=== PATIENT | female | born 1960 | race African-American/Black ===

== ENCOUNTER 2017-07-31 19:40 | Inpatient (IN) | payer OTHER ==
[~2017-07-31] VITALS: Ht 157.5 cm; Wt 68.0 kg
[2017-07-31] MEDS ORDERED: ASPIRIN 325 MG TABLET PO ONE (19:45)
[2017-07-31] MEDS ORDERED: NITROGLYCERIN OINT 1 GM PACKET TP ONE ×2 (19:45→20:17)
[2017-07-31] MEDS ORDERED: FUROSEMIDE 20 MG/2 ML VIAL IVP ONE (19:45)
[2017-07-31 20:09] LABS: BASOPHILS # (AUTO) 0.1 K/uL (0.0-8.0); BASOPHILS % (AUTO) 0.9 % (0.0-2.0); EOSINOPHILS % (AUTO) 0.5 % (0.0-7.0); HEMATOCRIT 39.4 % (31.2-41.9); LYMPHOCYTES # (AUTO) 2.5 K/uL (20.0-40.0); LYMPHOCYTES % (AUTO) 43.2 % (20.5-51.5); MEAN CORPUSCULAR HEMOGLOBIN 26.8 uug (24.7-32.8); MEAN CORPUSCULAR HGB CONC 33 g/dL (32.3-35.6); MEAN CORPUSCULAR VOLUME 81.3 fL (75.5-95.3); MONOCYTES # (AUTO) 0.5 K/uL (2.0-10.0); MONOCYTES % (AUTO) 8.2 % (0.0-11.0); NEUTROPHILS # (AUTO) 2.7 K/uL (1.8-8.9); NEUTROPHILS % (AUTO) 47.2 % (38.5-71.5); PLATELET COUNT (AUTO) 242 K/uL (179-408); RED BLOOD CELL COUNT(AUTO) 4.85 MIL/uL (3.63-4.92); WHITE BLOOD COUNT (AUTO) 5.7 K/uL (3.8-11.8)
[2017-07-31] MEDS ORDERED: ASPIRIN 325 MG TABLET ONE (20:17)
[2017-07-31] MEDS ORDERED: ATORVASTATIN 40 MG TABLET (20:22)
[2017-07-31] MEDS ORDERED: CARVEDILOL 6.25 MG TABLET (20:22)
[2017-07-31] MEDS ORDERED: [UNRECOGNIZED DRUG - OTHER] (20:22)
[2017-07-31] MEDS ORDERED: AMLODIPINE BESYLATE 5 MG TAB (20:22)
[2017-07-31] MEDS ORDERED: ENTRESTO 24 MG-26 MG TABLET (20:22)
[2017-07-31] MEDS ORDERED: FUROSEMIDE 20 MG TABLET (20:22)
[2017-07-31 20:23] LABS: CREATININE 0.9 mg/dL (0.6-1.3); POTASSIUM 4.1 mmol/L (3.5-5.1)
[2017-07-31] MEDS ORDERED: FUROSEMIDE 40 MG/4 ML VIAL ONE (20:23)
[2017-07-31 20:36] LABS: BILIRUBIN,DIRECT 0.4 mg/dL (0.0-0.2); BILIRUBIN,TOTAL 1.2 mg/dL (0.2-1.0); TOTAL PROTEIN, SERUM 7.4 g/dL (6.4-8.2)
[2017-08-01] MEDS ORDERED: ENOXAPARIN SODIUM 40 MG/0.4 ML DISP.SYRIN SQ SCH (03:45)
[2017-08-01] MEDS ORDERED: Z GUARD REMEDY PASTE 57 GM TUBE TOP PRN (04:00)
[2017-08-01] MEDS ORDERED: ACETAMINOPHEN 325 MG TABLET PO PRN (04:00)
[2017-08-01] MEDS ORDERED: ONDANSETRON 4 MG/2 ML VIAL IV PRN (04:00)
[2017-08-01] MEDS ORDERED: HYDROCODONE/APAP 5-325MG TABLET PO PRN (04:00)
[2017-08-01] MEDS ORDERED: MAGNESIUM HYDROXIDE 30 ML LIQUID UDC PO PRN (04:00)
[2017-08-01 06:42] LABS: BASOPHILS # (AUTO) 0.1 K/uL (0.0-8.0); BASOPHILS % (AUTO) 0.9 % (0.0-2.0); EOSINOPHILS # (AUTO) 0.1 K/uL (0.0-0.7); EOSINOPHILS % (AUTO) 1.8 % (0.0-7.0); HEMATOCRIT 36.8 % (31.2-41.9); HEMOGLOBIN 11.9 g/dL (10.9-14.3); LYMPHOCYTES # (AUTO) 2.6 K/uL (20.0-40.0); LYMPHOCYTES % (AUTO) 43.1 % (20.5-51.5); MEAN CORPUSCULAR HEMOGLOBIN 26.2 uug (24.7-32.8); MEAN CORPUSCULAR HGB CONC 32 g/dL (32.3-35.6); MEAN CORPUSCULAR VOLUME 80.9 fL (75.5-95.3); MONOCYTES # (AUTO) 0.6 K/uL (2.0-10.0); MONOCYTES % (AUTO) 10.2 % (0.0-11.0); NEUTROPHILS # (AUTO) 2.6 K/uL (1.8-8.9); PLATELET COUNT (AUTO) 227 K/uL (179-408); RED BLOOD CELL COUNT(AUTO) 4.55 MIL/uL (3.63-4.92)
[2017-08-01 06:55] LABS: MAGNESIUM 1.7 mg/dL (1.8-2.4); POTASSIUM 3.3 mmol/L (3.5-5.1)
[2017-08-01] MEDS ORDERED: CARVEDILOL 6.25 MG TABLET PO SCH (09:00)
[2017-08-01] MEDS: ASPIRIN 81 MG TAB.CHEW PO SCH (09:10)
[2017-08-01] MEDS: FUROSEMIDE 20 MG/2 ML VIAL IV SCH (09:10)
[2017-08-01] MEDS ORDERED: AMLODIPINE 5 MG TABLET ONE (09:26)
[2017-08-01] MEDS ORDERED: FUROSEMIDE 20 MG/2 ML VIAL ONE (09:26)
[2017-08-01] MEDS ORDERED: CARVEDILOL 6.25 MG TABLET ONE (09:26)
[2017-08-01] MEDS ORDERED: ASPIRIN 81 MG TAB.CHEW ONE (09:26)
[2017-08-01] MEDS: AMLODIPINE 5 MG TABLET PO SCH (11:10)
[2017-08-01] MEDS ORDERED: MAGNESIUM OXIDE 400 MG TABLET PO ONE (13:30)
[2017-08-01] MEDS ORDERED: POTASSIUM CHLORIDE 20 MEQ TAB.PRT.SR ONE (13:50)
[2017-08-01] MEDS ORDERED: POTASSIUM CHLORIDE 20 MEQ TAB.PRT.SR PO ONE (14:00)
[2017-08-01] MEDS: CARVEDILOL 3.125 MG TABLET PO SCH (18:05)
[2017-08-01 18:45] VITALS: BP 120/86
[2017-08-01 19:00] VITALS: BP 119/84
[2017-08-01] MEDS: ENOXAPARIN SODIUM 80 MG/0.8 ML DISP.SYRIN SQ SCH (21:00)
[2017-08-01] MEDS: ZOLPIDEM 5 MG TABLET PO PRN (22:11)
[2017-08-02] VITALS: BP 103/69
[2017-08-02 04:00] VITALS: BP 134/95
[2017-08-02 05:40] LABS: BASOPHILS % (AUTO) 0.7 % (0.0-2.0); EOSINOPHILS # (AUTO) 0.1 K/uL (0.0-0.7); EOSINOPHILS % (AUTO) 1.7 % (0.0-7.0); HEMOGLOBIN 11.9 g/dL (10.9-14.3); LYMPHOCYTES # (AUTO) 2.2 K/uL (20.0-40.0); LYMPHOCYTES % (AUTO) 36.2 % (20.5-51.5); MEAN CORPUSCULAR HEMOGLOBIN 26.3 uug (24.7-32.8); MEAN CORPUSCULAR HGB CONC 32 g/dL (32.3-35.6); MEAN CORPUSCULAR VOLUME 81.8 fL (75.5-95.3); MONOCYTES # (AUTO) 0.5 K/uL (2.0-10.0); MONOCYTES % (AUTO) 7.5 % (0.0-11.0); NEUTROPHILS # (AUTO) 3.2 K/uL (1.8-8.9); NEUTROPHILS % (AUTO) 53.9 % (38.5-71.5); PLATELET COUNT (AUTO) 225 K/uL (179-408); RED BLOOD CELL COUNT(AUTO) 4.53 MIL/uL (3.63-4.92)
[2017-08-02 05:54] LABS: CREATININE 0.9 mg/dL (0.6-1.3); MAGNESIUM 1.9 mg/dL (1.8-2.4); PHOSPHOROUS 3.7 mg/dL (2.5-4.9); POTASSIUM 3.8 mmol/L (3.5-5.1)
[2017-08-02 06:04] LABS: THYROID STIMULATING HORMONE 1.479 mIU/mL (0.358-3.740)
[2017-08-02] MEDS: ENOXAPARIN SODIUM 80 MG/0.8 ML DISP.SYRIN SQ SCH ×2 (09:00→20:41)
[2017-08-02] MEDS: ASPIRIN 81 MG TAB.CHEW PO SCH (09:06)
[2017-08-02] MEDS: CARVEDILOL 3.125 MG TABLET PO SCH ×2 (09:06→17:57)
[2017-08-02] MEDS: AMLODIPINE 5 MG TABLET PO SCH (09:07)
[2017-08-02] MEDS: FUROSEMIDE 20 MG/2 ML VIAL IV SCH (09:07)
[2017-08-02 12:16] VITALS: BP 113/82
[2017-08-02 16:00] VITALS: BP 118/90
[2017-08-02 20:00] VITALS: BP 107/78
[2017-08-02 22:00] VITALS: BP 107/78
[2017-08-02] MEDS: ZOLPIDEM 5 MG TABLET PO PRN (22:51)
[2017-08-03] VITALS (7 sets, daily range): BP systolic 118–138; BP diastolic 54–96
[2017-08-03] MEDS: AMLODIPINE 5 MG TABLET PO SCH (08:42)
[2017-08-03] MEDS: ASPIRIN 81 MG TAB.CHEW PO SCH (08:42)
[2017-08-03] MEDS: FUROSEMIDE 20 MG/2 ML VIAL IV SCH (08:42)
[2017-08-03] MEDS: CARVEDILOL 3.125 MG TABLET PO SCH (08:45)
[2017-08-03] MEDS: ENOXAPARIN SODIUM 80 MG/0.8 ML DISP.SYRIN SQ SCH (08:49)
[2017-08-03] MEDS ORDERED: CARVEDILOL 6.25 MG TABLET PO SCH (18:00)
[2017-08-03] MEDS ORDERED: CARVEDILOL 3.125 MG TABLET PO SCH (18:00)
[2017-08-03] MEDS ORDERED: ATORVASTATIN 40 MG TABLET PO SCH (21:00)
[2017-08-04] MEDS ORDERED: FUROSEMIDE 20 MG TABLET PO SCH (09:00)
== END 2017-08-03 18:40 | disposition home or self-care (01) | DRG 280 ==
LOC: ER 19:43 → OBSER 08-01 03:42 → TELE 08-01 18:32 → MED 08-03 11:08
PROVIDERS: ADMIT Nurse Practitioner Acute Care; ATTEND Nurse Practitioner Acute Care
DX: I11.0 Hypertensive heart disease with heart failure (principal); I21.A1 Myocardial infarction type 2; J96.02 Acute respiratory failure with hypercapnia; I50.23 Acute on chronic systolic (congestive) heart failure; I42.8 Other cardiomyopathies; B94.8 Sequelae of other specified infectious and parasitic diseases; Z79.82 Long term (current) use of aspirin; Z79.899 Other long term (current) drug therapy; Z91.11 Patient's noncompliance with dietary regimen
CPT/HCPCS: 36415; 70030-TC; 83735; 84100; 84443; 85025; 85730; 93005; 93307; A4663; J1650; J1940

== ENCOUNTER 2018-02-24 18:14 | Inpatient (IN) | payer OTHER ==
[~2018-02-24] VITALS: Ht 162.6 cm; Wt 69.4 kg
[~2018-02-24 18:14] MED LIST: AMLODIPINE BESYLATE 5 MG TAB; ATORVASTATIN 40 MG TABLET; CARVEDILOL 6.25 MG TABLET; ENTRESTO 24 MG-26 MG TABLET; FUROSEMIDE 20 MG TABLET; [UNRECOGNIZED DRUG - OTHER]
[2018-02-24] MEDS ORDERED: ATOR40TA PO (18:33)
[2018-02-24] MEDS ORDERED: FURO-152 PO (18:33)
[2018-02-24] MEDS ORDERED: CARV3.12 PO (18:33)
[2018-02-24] MEDS ORDERED: ASPI81TA31 PO (18:33)
--- NOTE | 2018-02-24 18:40 | NUR ---
RECEIVED PT C/O ABDOMINAL PAIN AND SOB , PT CONNECTED TO MONIOTOR AND 12 LEAD EKG DONE. AWAITING TO BE SEEN BY .
[2018-02-24] MEDS ORDERED: ONDANSETRON 4 MG/2 ML VIAL IV ONE (19:15)
--- NOTE | 2018-02-24 19:18 | NUR ---
REPORT GIVEN TO YOSEF FERNANDES
[2018-02-24] MEDS ORDERED: ONDANSETRON 4 MG/2 ML VIAL ONE (19:22)
[2018-02-24 19:32] LABS: HEMATOCRIT 40.2 % (31.2-41.9); HEMOGLOBIN 12.9 g/dL (10.9-14.3); LYMPHOCYTES % (AUTO) 28.7 % (20.5-51.5); MEAN CORPUSCULAR HEMOGLOBIN 25.3 uug (24.7-32.8); MEAN CORPUSCULAR HGB CONC 32 g/dL (32.3-35.6); MEAN CORPUSCULAR VOLUME 78.8 fL (75.5-95.3); MONOCYTES % (AUTO) 11.2 % (0.0-11.0); NEUTROPHILS % (AUTO) 58.3 % (38.5-71.5); PLATELET COUNT (AUTO) 276 K/uL (179-408); RED BLOOD CELL COUNT(AUTO) 5.11 MIL/uL (3.63-4.92); WHITE BLOOD COUNT (AUTO) 5.6 K/uL (3.8-11.8)
[2018-02-24 19:33] LABS: BASOPHILS % (AUTO) 0.8 % (0.0-2.0); EOSINOPHILS # (AUTO) 0.1 K/uL (0.0-0.7); LYMPHOCYTES # (AUTO) 1.6 K/uL (20.0-40.0); MONOCYTES # (AUTO) 0.6 K/uL (2.0-10.0); NEUTROPHILS # (AUTO) 3.3 K/uL (1.8-8.9)
[2018-02-24 19:40] LABS: CREATININE 1.1 mg/dL (0.6-1.3); POTASSIUM 3.5 mmol/L (3.5-5.1)
[2018-02-24 19:46] LABS: BILIRUBIN,DIRECT 0.6 mg/dL (0.0-0.2); BILIRUBIN,TOTAL 1.2 mg/dL (0.2-1.0); TOTAL PROTEIN, SERUM 7.3 g/dL (6.4-8.2)
[2018-02-24] MEDS ORDERED: ASPIRIN 81 MG TAB.CHEW PO ONE (21:45)
[2018-02-24] MEDS ORDERED: ASPIRIN 81 MG TAB.CHEW ONE (21:45)
[2018-02-24] MEDS ORDERED: ONDANSETRON 4 MG/2 ML VIAL IV PRN (22:15)
[2018-02-24] MEDS ORDERED: HYDROCODONE/APAP 5-325MG TABLET PO PRN (22:15)
[2018-02-24] MEDS ORDERED: Z GUARD REMEDY PASTE 57 GM TUBE TOP PRN (22:15)
[2018-02-24] MEDS ORDERED: ACETAMINOPHEN 325 MG TABLET PO PRN (22:15)
--- NOTE | 2018-02-24 22:19 | NUR ---
Pt resting comfortably in bed. Pt has adolescent granddaughter at bedside with her and is waiting for pt's son to fern picker the granddaughter before pt transfers to floor.
[2018-02-24] MEDS ORDERED: FLEET ENEMA 133 ML BOTTLE RC PRN (22:30)
[2018-02-24] MEDS ORDERED: MAGNESIUM CITRATE 296 ML BOTTLE PO ONE (22:30)
--- NOTE | 2018-02-24 22:54 | NUR ---
Pt. admitted to Telemetry , under care of Andre Chen COLOR STRAINING BAG WASHER. Diagnosis: Ascites + Heart Failure Report given to Serjio NAVAS. Belongs List completed VSS. No acute distress noted.
[2018-02-24] MEDS ORDERED: FUROSEMIDE 20 MG/2 ML VIAL IV ONE (23:00)
[2018-02-24 23:19] VITALS: BP 118/76
[2018-02-24] MEDS: MAGNESIUM HYDROXIDE 30 ML LIQUID UDC PO PRN (23:24)
--- NOTE | 2018-02-24 23:34 | NUR ---
Admitted from ER via [facility] D[facility]. CHF, 57 y/o female patient, awake alert & oriented, abdomen distended, unable to lay down in flat position with exertional SOB noted. Patient denies chest pain. Placed on Telemetry- Sinus rhythm on the monitor. O2 2 L nasally applied, kept on High mendoza's position, patient tolerated. Still c/o constipation x 5 days, Magnesium citrate 1 bottle given, Lasix 40 mg IVP adm. as ordered.
[2018-02-24] MEDS ORDERED: MAGNESIUM CITRATE 296 ML BOTTLE ONE (23:40)
[2018-02-25 04:00] VITALS: BP 113/84
--- NOTE | 2018-02-25 05:35 | NUR ---
Patient nauseated, Ice chips provided, Zofran 4mg IVP adm.
[2018-02-25 06:33] LABS: BASOPHILS % (AUTO) 0.7 % (0.0-2.0); EOSINOPHILS # (AUTO) 0.1 K/uL (0.0-0.7); EOSINOPHILS % (AUTO) 1.5 % (0.0-7.0); HEMATOCRIT 39.3 % (31.2-41.9); HEMOGLOBIN 12.6 g/dL (10.9-14.3); LYMPHOCYTES # (AUTO) 2.2 K/uL (20.0-40.0); LYMPHOCYTES % (AUTO) 43.1 % (20.5-51.5); MEAN CORPUSCULAR HEMOGLOBIN 25.6 uug (24.7-32.8); MEAN CORPUSCULAR HGB CONC 32 g/dL (32.3-35.6); MONOCYTES # (AUTO) 0.6 K/uL (2.0-10.0); MONOCYTES % (AUTO) 11.2 % (0.0-11.0); NEUTROPHILS # (AUTO) 2.2 K/uL (1.8-8.9); NEUTROPHILS % (AUTO) 43.5 % (38.5-71.5); PLATELET COUNT (AUTO) 257 K/uL (179-408); RED BLOOD CELL COUNT(AUTO) 4.91 MIL/uL (3.63-4.92); WHITE BLOOD COUNT (AUTO) 5.1 K/uL (3.8-11.8)
[2018-02-25 06:52] LABS: CREATININE 1.3 mg/dL (0.6-1.3); MAGNESIUM 2.2 mg/dL (1.8-2.4); PHOSPHOROUS 4.3 mg/dL (2.5-4.9); POTASSIUM 3.4 mmol/L (3.5-5.1)
[2018-02-25 07:33] LABS: *BILIRUBIN,URIN 1+ (NEGATIVE); *BLOOD, URINE NEGATIVE (NEGATIVE); *CLARITY,URINE CLEAR (CLEAR); *COLOR,URINE DARK YELLOW (YELLOW); *KETONES,URINE TRACE (NEGATIVE); *PROTEIN,URINE 2+ (NEGATIVE); LEUKOCYTE ESTERASE ,URINE NEGATIVE (NEGATIVE); NITRITE, URINE NEGATIVE (NEGATIVE); PH,URINE 5.5 (5.0-8.0); UGLUCOSE NEGATIVE (NEGATIVE)
[2018-02-25 07:43] LABS: RBC,URINE 0-3 /HPF (0-3); WBC,URINE 0-3 /HPF (0-3)
[2018-02-25 07:44] LABS: BACTERIA,URINE FEW /HPF (NONE SEEN); SQUAMOUS EPITHELIAL CELL,UR MODERATE /HPF (NONE SEEN)
[2018-02-25 07:45] LABS: MUCUS,URINE FEW /LPF (0-FEW)
--- NOTE | 2018-02-25 08:00 | NUR ---
AWAKE ALERT AND APPROPRIATE NO SS OF PAIN OR DISTRESS. STILL C/O CONSTIPATION WILL FOLLOW-UP WITH MD FOR LAXATIVE. REMAINS SR ON MONITOR
[2018-02-25] MEDS ORDERED: FUROSEMIDE 20 MG/2 ML VIAL IV SCH ×2 (09:00→13:00)
[2018-02-25] MEDS: CARVEDILOL 3.125 MG TABLET PO SCH ×2 (09:00→20:33)
[2018-02-25] MEDS: PANTOPRAZOLE SODIUM 40 MG VIAL IV SCH (09:02)
[2018-02-25] MEDS: ASPIRIN 81 MG TAB.CHEW PO SCH (09:03)
[2018-02-25] MEDS ORDERED: POTASSIUM CHLORIDE 20 MEQ POWDER PACKET PO ONE (10:45)
--- NOTE | 2018-02-25 11:30 | NUR ---
SEEN BY DR FINK MADE AWARE OF COREG BEING HELD FOR BP 104/73 OKAY TO HOLD BUT GIVE THE LASIX
[2018-02-25 11:33] VITALS: BP 102/75
[2018-02-25] MEDS ORDERED: FUROSEMIDE 20 MG/2 ML VIAL IV ONE (12:00)
[2018-02-25] MEDS: BISACODYL 10 MG SUPP.RECT RC ONE ×2 (12:30→12:40)
[2018-02-25] MEDS: FUROSEMIDE 40 MG/4 ML VIAL IV SCH ×2 (12:40→17:06)
--- NOTE | 2018-02-25 15:10 | NUR ---
NO ACUTE CHANGE, PATIENT DENIES PAIN OR DISTRESS
[2018-02-25] MEDS ORDERED: SACU1TAB PO (15:23)
[2018-02-25 15:39] VITALS: BP 116/73
[2018-02-25 20:00] VITALS: BP 104/73
[2018-02-25] MEDS: DOCUSATE SODIUM 100 MG CAPSULE PO SCH (20:32)
[2018-02-25] MEDS ORDERED: ATORVASTATIN 40 MG TABLET PO SCH (21:00)
[2018-02-26] VITALS: BP 100/75
[2018-02-26 04:00] VITALS: BP 112/77
[2018-02-26] MEDS: MAGNESIUM HYDROXIDE 30 ML LIQUID UDC PO PRN (04:13)
--- NOTE | 2018-02-26 04:26 | NUR ---
HELD COREG LAST NIGHT, BP 104/73. PT REFUSED COLACE, BUT REQUESTED FOR MOM FOR CONSTIPATION. SR ON TELE.
--- NOTE | 2018-02-26 08:00 | NUR ---
AWAKE ALERT AND ORIENTED X3 NO SS OF PAIN OR DISTRESS. SR ON MONITOR
[2018-02-26] MEDS: PANTOPRAZOLE SODIUM 40 MG VIAL IV SCH (08:22)
[2018-02-26] MEDS: FUROSEMIDE 40 MG/4 ML VIAL IV SCH ×3 (08:23→17:25)
[2018-02-26] MEDS: ASPIRIN 81 MG TAB.CHEW PO SCH (08:23)
[2018-02-26] MEDS: CARVEDILOL 3.125 MG TABLET PO SCH ×2 (08:24→20:24)
[2018-02-26] MEDS ORDERED: LISINOPRIL 10 MG TABLET PO SCH (09:00)
[2018-02-26 10:47] LABS: BASOPHILS % (AUTO) 0.9 % (0.0-2.0); EOSINOPHILS # (AUTO) 0.1 K/uL (0.0-0.7); EOSINOPHILS % (AUTO) 1.8 % (0.0-7.0); HEMATOCRIT 38.3 % (31.2-41.9); HEMOGLOBIN 12.4 g/dL (10.9-14.3); LYMPHOCYTES # (AUTO) 1.4 K/uL (20.0-40.0); LYMPHOCYTES % (AUTO) 29.4 % (20.5-51.5); MEAN CORPUSCULAR HEMOGLOBIN 25.7 uug (24.7-32.8); MEAN CORPUSCULAR HGB CONC 32 g/dL (32.3-35.6); MEAN CORPUSCULAR VOLUME 79.4 fL (75.5-95.3); MONOCYTES # (AUTO) 0.6 K/uL (2.0-10.0); MONOCYTES % (AUTO) 11.6 % (0.0-11.0); NEUTROPHILS # (AUTO) 2.7 K/uL (1.8-8.9); NEUTROPHILS % (AUTO) 56.3 % (38.5-71.5); PLATELET COUNT (AUTO) 262 K/uL (179-408); RED BLOOD CELL COUNT(AUTO) 4.83 MIL/uL (3.63-4.92); WHITE BLOOD COUNT (AUTO) 4.8 K/uL (3.8-11.8)
[2018-02-26 10:55] LABS: CREATININE 1.3 mg/dL (0.6-1.3); MAGNESIUM 2.3 mg/dL (1.8-2.4); POTASSIUM 3.4 mmol/L (3.5-5.1); TOTAL PROTEIN, SERUM 7.4 g/dL (6.4-8.2)
[2018-02-26 11:04] VITALS: BP 106/66
[2018-02-26] MEDS ORDERED: POTASSIUM CHLORIDE 10 MEQ TAB.PRT.SR PO ONE (11:15)
--- NOTE | 2018-02-26 12:00 | NUR ---
SEEN BY DR FINK NOTED STRIPS WITH EPISODES OF V-TACH NO NEW ORDERS. CONTINUE WITH CURRENT TX PLAN, ACCURATE I&O. K3'4 REPLACED ORDERED
[2018-02-26 15:36] VITALS: BP 100/71
[2018-02-26] MEDS: ENTRESTO (SACUBITRIL/VALSARTAN) 24MG/26MG PO SCH (17:00)
--- NOTE | 2018-02-26 17:37 | NUR ---
PATIENT REMAINS ON SR NO SS OF DISTRESS OR ACUTE PAIN. GOOD URINE OUTPUT FROM LASIX. SEE I&O SHEET
--- NOTE | 2018-02-26 19:10 | NUR ---
RECEIVED PT AWAKE ON BED, AAO X3, ON TELE SINUS RHYTHM WITH HR OF 91. DENIES ANY SOB OR CHEST PAIN. IV SITE ON R WRIST, PATENT AND INTACT. SAFETY MEASURES INITIATED, CALL SAMUEL WITHIN REACH
[2018-02-26 20:23] VITALS: BP 98/60
[2018-02-26] MEDS: DOCUSATE SODIUM 100 MG CAPSULE PO SCH (20:24)
[2018-02-27 00:04] VITALS: BP 102/71
[2018-02-27 04:19] VITALS: BP 110/78
[2018-02-27] MEDS: PANTOPRAZOLE SODIUM 40 MG TABLET.DR PO SCH (06:19)
--- NOTE | 2018-02-27 06:54 | NUR ---
PT ASLEEP ON BED, ON TELE SINUS RHYTHM WITH HR OF 92, NO SIGNS OF RESPIRATORY DISTRESS NOTED, SAFETY MEASURES MAINTAINED AT ALL TIMES , CALL SAMUEL WITHIN REACH
--- NOTE | 2018-02-27 07:20 | NUR ---
RECEIVED PATIENT IN BED AWAKE ALERT AND ORIENTED ISAEL PAIN OR DISCOMFORTS AT THIS TIME ON ROOM AIR WITH NO SHORTNESS OF BREATH PATIENT IS ON 1000 ML FLUID RESTRICTIONS EDUCATED PATIENT THAT WE WILL NOT FILL UP HER WATER PITCHER BUT WILL INSTEAD GIVE HER WATER IN THE CUP AND WILL COORDINATE WITH THE LIQUIDS PROVIDED BY THE DIETARY.PATIENT IS NOT AGREEABLE STATED WANTS THE PITCHER AT HER BEDSIDE WILL CONTINUE TO OBSERVE AND PROVIDE SAFE AND THERAPEUTIC ENVIRONMENT AT ALL TIMES.
[2018-02-27] MEDS: ASPIRIN 81 MG TAB.CHEW PO SCH (09:00)
[2018-02-27] MEDS: FUROSEMIDE 40 MG/4 ML VIAL IV SCH ×3 (09:01→16:33)
[2018-02-27] MEDS: ENTRESTO (SACUBITRIL/VALSARTAN) 24MG/26MG PO SCH ×2 (09:01→16:31)
[2018-02-27] MEDS: CARVEDILOL 3.125 MG TABLET PO SCH ×2 (09:01→20:07)
[2018-02-27 11:30] VITALS: BP 100/67
[2018-02-27 12:20] LABS: CREATININE 1.3 mg/dL (0.6-1.3); POTASSIUM 3.2 mmol/L (3.5-5.1)
[2018-02-27 12:24] LABS: BASOPHILS % (AUTO) 0.8 % (0.0-2.0); EOSINOPHILS # (AUTO) 0.1 K/uL (0.0-0.7); EOSINOPHILS % (AUTO) 2.2 % (0.0-7.0); HEMOGLOBIN 12.7 g/dL (10.9-14.3); LYMPHOCYTES # (AUTO) 1.5 K/uL (20.0-40.0); LYMPHOCYTES % (AUTO) 30.7 % (20.5-51.5); MEAN CORPUSCULAR HEMOGLOBIN 25.6 uug (24.7-32.8); MEAN CORPUSCULAR HGB CONC 33 g/dL (32.3-35.6); MEAN CORPUSCULAR VOLUME 78.5 fL (75.5-95.3); MONOCYTES # (AUTO) 0.6 K/uL (2.0-10.0); MONOCYTES % (AUTO) 12.4 % (0.0-11.0); NEUTROPHILS # (AUTO) 2.5 K/uL (1.8-8.9); NEUTROPHILS % (AUTO) 53.9 % (38.5-71.5); PLATELET COUNT (AUTO) 273 K/uL (179-408); RED BLOOD CELL COUNT(AUTO) 4.97 MIL/uL (3.63-4.92); WHITE BLOOD COUNT (AUTO) 4.7 K/uL (3.8-11.8)
--- NOTE | 2018-02-27 14:00 | NUR ---
CALLED PATIENTS PRIMARY DOCTOR RAMAN AMAYA SPOKE TO GLORIA THE KEYBOARD INSTRUMENT REPAIRER AND APPOINTMENT MADE FOR THE PATIENT FOR March AT 1030 AM FOR CONGESTIVE HEART FAILURE FOLLOW UP PATIENT NOTIFIED.
--- NOTE | 2018-02-27 14:48 | NUR ---
POTASSIUM LEVEL IS 3.2 PEDRO HAND FUR CLEANER NOTIFIED WITH NEW ORDERS AND NOTED.
[2018-02-27 15:35] VITALS: BP 106/68
[2018-02-27] MEDS ORDERED: POTASSIUM CHLORIDE 20 MEQ TAB.PRT.SR PO ONE (17:00)
--- NOTE | 2018-02-27 17:25 | NUR ---
PATIENT IS DIURESING WELL AMBULATORY TO DESIRED DESTINATION WITH EDEMA BOTH FEET ENCOURAGED TO ELEVATE BOTH LEGS MUCH POSSIBLE AND EXPRESSED UNDERSTANDING.
--- NOTE | 2018-02-27 18:20 | NUR ---
PATIENT SEEN AND EXAMINED BY DR HEATON WITH ORDER TO DISCONTINUE TELEMETRY TODAY AND NOTED.
--- NOTE | 2018-02-27 18:41 | NUR ---
FLUID RESTRICTION IS NOW 1500 PATIENT AWARE AND DIETARY NOTIFIED.
[2018-02-27 20:00] VITALS: BP 116/74
--- NOTE | 2018-02-27 20:00 | NUR ---
Pt observed to be sitting up in bed AAO x 3. Breathing observed to be nonlabored and symmetrical. Pt aware of plan of care and fluid restriction of 1500 ml / day. Safe environment provided throughout the day. Will continue to monitor closely.
[2018-02-27] MEDS: DOCUSATE SODIUM 100 MG CAPSULE PO SCH (20:07)
[2018-02-27] MEDS: MAGNESIUM HYDROXIDE 30 ML LIQUID UDC PO PRN (23:57)
[2018-02-28 04:34] VITALS: BP 102/69
[2018-02-28] MEDS: PANTOPRAZOLE SODIUM 40 MG TABLET.DR PO SCH (06:21)
--- NOTE | 2018-02-28 06:38 | NUR ---
Stable condition throughout the night. All needs attended to. Safe environment implemented at all times.
--- NOTE | 2018-02-28 06:41 | NUR ---
Pt is refusing labs at this time. Pt education provided.
--- NOTE | 2018-02-28 07:25 | NUR ---
PATIENT IS AWAKE IN BED ALERT AND ORIENTED REFUSING FOR BLOOD LAB DRAW THIS AM STATED THAT THE DOCTOR TOLD HER THAT SHE IS GOING HOME TODAY AND SUCH DOES NOT NEED TO HAVE HER LABS CHECKED EXPLAINED TO HER THAT HER POTASSIUM WAS LOW YESTERDAY REQUIRING SUPPLEMENT OF POTASSIUM AND IT WILL BE SAFE TO KNOW HER LEVEL BEFORE DISCHARGE PATIENT REFUSED AND STATED THAT IT WAS NOT NECESSARY PATIENTS RIGHT TO REFUSE RESPECTED..REMAIN ON ROOM AIR WITH NO SHORTNESS OF BREATH AT THIS TIME.BLE STILL SWOLLEN ENCOURAGED TO KEEP ELEVATED AND TO MAINTAIN FLUID RESTRICTIONS AND SHE EXPRESSED UNDERSTANDING WILL CONTINUE TO OBSERVE.
[2018-02-28] MEDS: ENTRESTO (SACUBITRIL/VALSARTAN) 24MG/26MG PO SCH ×2 (08:51→17:00)
[2018-02-28] MEDS: ASPIRIN 81 MG TAB.CHEW PO SCH (08:53)
[2018-02-28] MEDS: CARVEDILOL 3.125 MG TABLET PO SCH (08:53)
[2018-02-28] MEDS ORDERED: MULTIVITAMINS,THERAPEUTIC TABLET PO SCH (09:00)
[2018-02-28] MEDS ORDERED: FUROSEMIDE 40 MG TABLET PO SCH (09:00)
[2018-02-28] MEDS ORDERED: POTASSIUM CHLORIDE 10 MEQ TAB.PRT.SR PO ONE (11:15)
--- NOTE | 2018-02-28 11:25 | NUR ---
MERY FAN BLADE ALIGNER HERE AND SEEN PATIENT ORDERED POTASSIUM REPLACEMENT FOR HER FOR TODAY BUT PATIENT HAS REFUSED BLOOD DRAW AND NO POTASSIUM LEVEL TODAY SPOKE WITH MERY AND SHE STATED OKAY JUST DO NOT GIVE THE POTASSIUM STATED PATIENT WILL BE DISCHARGED TODAY AND WILL GET A PRESCRIPTION FOR POTASSIUM TO TAKE AT HOME.
[2018-02-28 11:40] VITALS: BP 108/70
[2018-02-28] MEDS ORDERED: POTA-10 PO (12:37)
[2018-02-28] MEDS ORDERED: ATOR20TA PO (12:37)
[2018-02-28] MEDS ORDERED: DOCU100C36 PO (12:37)
[2018-02-28] MEDS ORDERED: FURO40TA5 PO (12:37)
--- NOTE | 2018-02-28 13:34 | NUR ---
ORDER TO DISCHARGE PATIENT HOME TODAY RECEIVED AND NOTED PATIENT AWARE AND STATED THAT SHE WILL LET ME KNOW WHEN SHE IS READY TO LEAVE.
--- NOTE | 2018-02-28 14:45 | NUR ---
DISCHARGE INSTRUCTIONS AND PRESCRIPTIONS GIVEN TO PATIENT AT THIS TIME.INSTRUCTED HER ON FLUID RESTRICTIONS OF 1500 ML AND LOWERING HER SODIUM INTAKE.SHE WAS ALSO INSTRUCTED TO GO FOR HER APPOINTMENT WITH DR CAMARGO ON Tuesday03/03/18 AT 1030 FOR A REVIEW OF HER HEART FAILURE LOW POTASSIUM AND TO ELEVATE HER LOWER EXT WHEN EVER SHE COULD TO DECREASE SWELLING AND SHE EXPRESSED UNDERSTANDING.PATIENT STATED THAT HER CAR IS HERE IN THE PARKING LOT AND WILL LET ME KNOW WHEN SHE IS SET TO LEAVE.HEPLOCK AND ID BAND REMOVED AT THIS TIME.[facility] WAS HERE AND EDUCATED PATIENT ON HER MEDICATIONS.PATIENTS HOME MEDICATIONS BOTTLE FROM THE PHARMACY WAS EMPTY AT THIS TIME PATIENT AWARE.
--- NOTE | 2018-02-28 17:25 | NUR ---
PATIENT IS STILL HERE STATED WILL BE READY TO LEAVE IN A LITTLE WHILE PER PHARMACY PATIENT HAS NO MORE OF THE ENTRESTO TABLETS LEFT SHE APPARENTLY USED UP ALL THE PILLS THAT SHE BROUGHT TO THE HOSPITAL AND PER ALISHA AT THE PHARMACY HAS NO SUPPLY AVAILABLE HERE BUT PATIENT STATED HAS SUPPLY IN HER HOME SO I INSTRUCTED HER TO TAKE ONE MORE DOSE TODAY SINCE SHE MISSED THE 1700 DOSE AND SHE EXPRESSED UNDERSTANDING.
--- NOTE | 2018-02-28 18:40 | NUR ---
PATIENT DISCHARGED TAKEN DOWN BY W/CHAIR IN SATISFACTORY CONDITION TO HER CAR AT THE PARKING LOT OF [place] WITH ALL HER PERSONAL BELONGINGS AND INSTRUCTIONS ALREADY GIVEN REMINDED HER TO TAKE HER ENTRESTO TONITE AND FOLLOW UP WITH DR WALL ON Tuesday03/03/2018 AT 1030 AM AND TO GO THE NEAREST EMERGENCY ROOM FOR ANY WORSENING SYMPTOMS AND SHE EXPRESSED UNDERSTANDING.
== END 2018-02-28 18:33 | disposition home or self-care (01) | DRG 194 ==
LOC: ER 18:16 → TELE 22:57 → MED 02-27 18:10
PROVIDERS: ADMIT Nurse Practitioner Acute Care; ATTEND Nurse Practitioner Acute Care
DX: I11.0 Hypertensive heart disease with heart failure (principal); R18.8 Other ascites; I42.9 Cardiomyopathy, unspecified; I50.23 Acute on chronic systolic (congestive) heart failure; K59.00 Constipation, unspecified; E78.5 Hyperlipidemia, unspecified; I25.2 Old myocardial infarction; Z79.82 Long term (current) use of aspirin; Z79.899 Other long term (current) drug therapy; Z91.11 Patient's noncompliance with dietary regimen; I50.810 Right heart failure, unspecified; D25.9 Leiomyoma of uterus, unspecified
CPT/HCPCS: 36415; 70030-TC; 71045; 83690; 83735; 84100; 85025; 85730; 87086; 93005; A4663; C9113; J1940; J2405